=== PATIENT | female | born 1980 | race African-American/Black ===

== ENCOUNTER 2016-04-20 11:34 | Emergency (ER) | payer OTHER ==
[2016-04-20 11:42] VITALS: BP 120/68; PULSE 84; TEMP 98.6; BMI 30.9
[2016-04-20] MEDS ORDERED: ACETAMINOPHEN 325 MG TABLET (FP) PO ONE (12:20)
[2016-04-20] MEDS ORDERED: ACETAMINOPHEN 325 MG TABLET (FP) ONE (12:20)
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
== END 2016-04-20 13:53 | disposition home or self-care (01) ==
LOC: JERFT 11:34
DX: O99.89 Other specified diseases and conditions complicating pregnancy, childbirth and the puerperium (principal); M54.5 Low back pain; M25.511 Pain in right shoulder; Z3A.18 18 weeks gestation of pregnancy; V43.52XA Car driver injured in collision with other type car in traffic accident, initial encounter; Y92.414 Local residential or business street as the place of occurrence of the external cause; Y93.89 Activity, other specified; Y99.8 Other external cause status
CPT/HCPCS: 76815-TC; 99281-25

== ENCOUNTER 2016-09-13 08:25 | Inpatient (IN) | payer OTHER ==
[~2016-09-13 08:25] MED LIST: CITRIC ACID/SODIUM CITRATE 30 ML UNIT-DOSE CUP PO ONE
[2016-09-13] MEDS ORDERED: ELECTROLYTE-148 SOLN 500 ML IV ONE (08:55)
[2016-09-13] MEDS ORDERED: TUBERCULIN PPD 5 TU/0.1ML SYRINGE (IN PATIENT USE ONLY) ID ONE (09:30)
[2016-09-13] MEDS ORDERED: ELECTROLYTE-148 SOLN 1,000 ML IV SCH (09:55)
--- NOTE | 2016-09-13 10:02 | HP ---
Past Medical History - Admission History of Present Illness: 36 yo @ 39 03/25 wks EDC 09/19/2016 presenting for repeat delivery + bilateral tubal ligation complicated by: 1. AMA - negative sequential screen 2. BMI > 30 - normal glucose screen 3. Prior CD x 3 - desires repeat + BTL 4. Declined SMA/CF/Fragile X screening 5. Prior exploratory laparotomy for ectopic 6. Prior SAB x 4 - thrombophilia screen negative 06/2011 Patient presents for routine scheduled CD + BTL. She reports movement, denies leakage of fluid, vaginal bleeding or contractions History Source: Patient - Past Medical History Cardiovascular: No: HTN Pulmonary: No: Asthma ...: 8 ...Para: 3 ...Term: 3 ...: 0 ...Spon : 4 ...Induced : 0 ...Multiple Gestation: 0 ...LMP: 12/19/15 ... Weeks Gestation by Dates: 38.3 ...EDC by Dates: 09/24/16 ...EDC by Sono: 09/19/16 Heme/Onc: Yes: Anemia - Past Surgical History Past Surgical History: Yes: Hx Myomectomy: No Hx Transabdominal Cerclage: No Additional Surgical History: CD x 3. laparotomy for ectopic - Smoking History Smoking history: Never smoked Have you smoked in the past 12 months: No Aproximately how many cigarettes per day: 0 - Alcohol/Substance Use Hx Alcohol Use: No - Social History History of Recent Travel: No Home Medications - Allergies Allergies/Adverse Reactions: Allergies Allergy/AdvReac Type Severity Reaction Status Date / Time No Known Allergies Allergy Verified 04/20/16 11:40 - Home Medications Home Medications: Ambulatory Orders Vitamins (Sjr) - 1 tab PO DAILY 05/09/13 Oxycodone HCl/Acetaminophen [Percocet 5-325 mg Tablet -] 1 - 2 tab PO Q6H #20 tab 01/31/15 Butalb/Acetaminophen/Caffeine [Fioricet 50-300-40 mg Capsule] 1 each PO Q4H PRN #16 capsule 02/01/15 Family Disease History - Family Disease History Family History: Denies Review of Systems - Review of Systems Constitutional: reports: No Symptoms Neck: reports: No Symptoms Cardiovascular: reports: No Symptoms Respiratory: reports: No Symptoms Gastrointestinal: reports: No Symptoms Genitourinary: reports: No Symptoms Musculoskeletal: reports: No Symptoms Integumentary: reports: No Symptoms Endocrine: reports: No Symptoms Hematology/Lymphatic: reports: No Symptoms Physical Exam - Maternity Vital Signs: Vital Signs Temperature 98.4 F 09/13/16 08:45 Pulse Rate 91 H 09/13/16 08:45 Respiratory Rate 20 09/13/16 08:45 Blood Pressure 125/76 09/13/16 08:45 O2 Sat by Pulse Oximetry (%) Constitutional: Yes: Well Nourished, No Distress, Calm Neck: Yes: Supple Cardiovascular: Yes: Regular Rate and Rhythm Lungs: Clear to auscultation - Abdominal Exam/OB Fundal Height: 40 Number of Fetuses: Single Contractions: No Category: I - Vaginal Exam/OB Vaginal Bleediing: No - Physical Exam Psychiatric: Yes: Alert, Oriented - Labs Lab Results: PNL - A positive, antibody negative; RPR NR; HBsAg negative, Rubella Immune; HIV negative; GBS negative; GTT 114 Hemorrhage Risk Assessment - Risk Factors Medium Risk Factors: Yes: Prior , uterine surgery,or multiple laparotomies High Risk Factors: Yes: None Risk Score: 1 Risk Level: Medium Risk Assessment/Plan 36 yo for repeat delivery and tubal ligation 1. Consents reviewed and signed. Reviewed risks of procedure including infection , bleeding, damage to surrounding organs such as bowel and bladder, risk of injury to . 2. Reviewed preop labs 3. 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 SCDs for DVT PPX 5. Will proceed to OR
[2016-09-13] MEDS ORDERED: BENZOCAINE 20% 57 GM BOTTLE TP PRN (11:55)
[2016-09-13] MEDS ORDERED: METHYLERGONOVINE MALEATE 0.2 MG/1 ML AMP IM PRN (11:55)
[2016-09-13] MEDS ORDERED: oxyCODONE HCL 5 MG TABLET PO PRN ×2 (11:55)
[2016-09-13] MEDS ORDERED: WITCH HAZEL 50% (TUCKS) 40 PAD/JAR PAD TP PRN (11:55)
[2016-09-13] MEDS ORDERED: D5W-LR W/ 20 UNITS OXYTOCIN 1,000 ML IV SCH (12:00)
--- NOTE | 2016-09-13 12:08 | PN ---
Delivery - Delivery Section: Repeat Type of Anesthesia: Spinal EBL (cc): 600 Delivery, Single - Stages of Labor Placenta: Yes: Expressed - Condition of Infant Gender: Male Position: Right, OT - 1 Minute Total Score: 9 5 Minutes Total Score: 9 - Merlin Feeding Plan Initial Plan: Elected not to breastfeed exclusively throughout hospitalization Remarks - Remarks Remarks: Surgeon: Carlos Alberto Assist: Fermin Anesthesia: [id number] EBL: 600 UOP: 400 IVF:1200 Findings: male infant, ROT position, weight 6-13, length 18.5 inches; normal tubes and ovaries bilaterally Pathology: Placenta, portion of left and right fallopian tubes Dictation:
[2016-09-13] MEDS ORDERED: ONDANSETRON 4 MG/2 ML VIAL IVPB PRN (12:28)
--- NOTE | 2016-09-13 13:03 | OP ---
DATE OF OPERATION: 09/13/2016 ATTENDING PHYSICIAN: Mariza Carcamo MD PREOPERATIVE DIAGNOSIS: Intrauterine of 39+ weeks, previous section desiring repeat, and desiring permanent sterilization. POSTOPERATIVE DIAGNOSIS: Intrauterine of 39+ weeks, previous section desiring repeat, and desiring permanent sterilization. SURGERY: Repeat delivery and bilateral tubal ligation. SURGEON: Mariza Carcamo MD [employer]NAGEMENT ADVISER: Oscar Christensen MD ANESTHESIA: Bonilla Kaplan MD ESTIMATED BLOOD LOSS: 600 mL. URINE OUTPUT: 400 mL. FLUIDS: Intravenous fluids given of 1200 mL. FINDINGS: Weight of the is 6 pounds 13 ounces; length of 18-1/2-inches. PATHOLOGY: Placenta, portion of left and right fallopian tubes. INDICATIONS: The patient is a 36-year-old 9, para 3-0-5-3, at 39 weeks with prior x3. She is desiring repeat and desiring permanent sterilization. She was counseled regarding the risks, benefits, alternatives, and complications of the procedure including infection, bleeding, damage to underlying organs such as bowel, bladder, and uterus, injury to the infant, risk of tubal ligation failure, risk of regret. She expressed understanding and was brought to the operating room. When anesthesia was found to be adequate, the patient was prepped and draped in the normal sterile fashion. She was placed in the dorsal supine position with a leftward tilt. An approximately 11-cm skin incision was made with the knife and carried down to the underlying rectus muscles using the Bovie electrocautery. The fascia was nicked in the midline and extended laterally using electrocautery. The inferior portion of the fascial incision was tented up using Sarah clamps and dissected off the underlying rectus muscles using the Miranda scissors. Attention was brought to the superior portion where in similar fashion was tented up using Sarah clamps and dissected off the underlying rectus muscle using the Miranda scissors. The rectus muscles were in the midline. The peritoneum was entered sharply and extended superiorly and inferiorly. The vesicouterine peritoneum was entered sharply and bladder flap was created bluntly. Hysterotomy was performed, extended laterally using the bandage scissors. Amniotomy was performed. Clear fluid was noted. The infant's head was brought to the hysterotomy site and was delivered followed by shoulders and body without difficulty. The cord was clamped and cut. Cord blood was collected and sent. The infant was handed to the awaiting NICU staff present for delivery. The placenta was delivered. The uterus was cleared of all clots and debris. The uterus was closed using 0 Biosyn in a running layer and the second layer as embrocating layer. Attention was brought to the left fallopian tube. It was followed to the fimbriated end. A 2-cm portion of the fallopian tube was isolated and suture ligated using 0 chromic gut. Electrocautery was applied to the fallopian tube ends and good hemostasis was noted. Attention was brought to the right fallopian tube. It was followed to the fimbriated end. A 2-cm portion was isolated and suture ligated using 0 chromic gut. Bovie electrocautery was applied to the fallopian tube ends and good hemostasis was noted. The hysterotomy was examined and found to be hemostatic. The vesicouterine peritoneum was closed using 2-0 Biosyn in a running fashion. The muscles were reapproximated using 0 Biosyn in interrupted fashion. The fascia was closed using 0 Vicryl in a running fashion. The subcutaneous fat was reapproximated using 0 Biosyn in a running fashion. The skin was reapproximated using 3-0 Vicryl. The patient tolerated the procedure well. Estimated blood loss was 600 mL. The patient was brought to the recovery room in stable condition. Tejal [id number]
[2016-09-13] MEDS: IBUPROFEN 800 MG/8 ML IJ IVPB PRN ×2 (14:11→23:24)
[2016-09-14 08:19] LABS: BASOPHIL 0.6 % (0-2.0); EOSINOPHIL 0.3 % (0-4.5); MCH 26.6 pg (25.7-33.7); MEAN CELL VOLUME 80.7 fl (80-96); MEAN PLT VOLUME 7.9 fl (7.5-11.1); NEUTROPHILS 79.9 % (42.8-82.8); PLATELET COUNT 164 K/MM3 (134-434); RDW 15.3 % (11.6-15.6)
--- NOTE | 2016-09-14 08:56 | PN ---
Post Progress Note - Subjective Subjective: Patient without acute complaints. Reports tolerating oral intake without nausea or vomiting. Ambulating without dizziness. Denies fevers or chills. Pain well controlled with oral pain medication. without difficulty. Passing flatus. Post Day: 1 Type of Delivery: Repeat C/S Vital Signs: Vital Signs Temperature 98.5 F 09/14/16 06:00 Pulse Rate 77 09/14/16 06:00 Respiratory Rate 20 09/14/16 06:00 Blood Pressure 110/64 09/14/16 06:00 O2 Sat by Pulse Oximetry (%) 99 09/13/16 13:20 Breast Exam: Yes: Soft, Engorged Uterus: Yes: Fundus Firm, Fundus @ umbilicus Incision: Yes: Dressing dry and intact Abdomen/GI: Yes: Abdomen soft, Tender (incisional). No: Abdominal Distention Lochia: Yes: Serosa Lochia, amount: Small Extremities: Yes: Calves non-tender, Edema (trace) - Labs Labs: CBC WBC 9.0 K/mm3 (4.0-10.0) 09/14/16 07:15 RBC 4.07 M/mm3 (3.60-5.2) 09/14/16 07:15 Hgb 10.9 GM/dL (10.7-15.3) 09/14/16 07:15 Hct 32.9 % (32.4-45.2) 09/14/16 07:15 MCV 80.7 fl (80-96) 09/14/16 07:15 MCHC 33.0 g/dl (32.0-36.0) 09/14/16 07:15 RDW 15.3 % (11.6-15.6) 09/14/16 07:15 Plt Count 164 K/MM3 (134-434) 09/14/16 07:15 MPV 7.9 fl (7.5-11.1) 09/14/16 07:15 Neutrophils % 79.9 % (42.8-82.8) 09/14/16 07:15 Lymphocytes % 11.2 % (8-40) D 09/14/16 07:15 Monocytes % 8.0 % (3.8-10.2) 09/14/16 07:15 Eosinophils % 0.3 % (0-4.5) 09/14/16 07:15 Basophils % 0.6 % (0-2.0) 09/14/16 07:15 Assessment/Plan 36 yo POD #4 s/p repeat CD + BTL, afebrile, vital signs stable, doing well 1. Continue routine postoperative care. 2. Follow up AM CBC 3. Rh positive status, no rhogam indicated. 4. Encourage ambulation and incentive spirometer use 5. Continue oral pain medication 6. Anticipate discharge home postoperative day #3 or #4
[2016-09-14] MEDS: PRENATAL VITAMINS W/ FOLIC ACID TABLET (FP) PO SCH (10:06)
[2016-09-14] MEDS: ENOXAPARIN NA (PORCINE) 40 MG/0.4 ML DISP.SYRIN SQ SCH (10:06)
[2016-09-14] MEDS: IBUPROFEN 600 MG TABLET (FP) PO PRN ×3 (10:07→22:02)
[2016-09-14] MEDS: ACETAMINOPHEN 325 MG TABLET (FP) PO PRN ×3 (10:08→22:01)
[2016-09-14] MEDS ORDERED: BISACODYL 10 MG SUPP.RECT RC PRN (11:56)
--- NOTE | 2016-09-14 13:48 | PN ---
Progress Note (short form) - Note Progress Note: Anesthesiology POD #1 s/p C/S under spinal anesthesia. Pt. feels well, denies h/a or problems walking. Pain under control. VSS.
[2016-09-14] MEDS ORDERED: DIPHTH,PERTUSS(ACELL),TET 0.5 ML DISP.SYRIN IM ONE (14:00)
[2016-09-14] MEDS: SIMETHICONE 80 MG TAB.CHEW (FP) PO PRN ×2 (14:59→22:02)
[2016-09-14] MEDS: SENNOSIDES/DOCUSATE COMBO (SENNA PLUS) TABLET (UD) PO PRN (22:02)
[2016-09-15] MEDS: IBUPROFEN 600 MG TABLET (FP) PO PRN ×3 (06:16→19:58)
[2016-09-15] MEDS: ACETAMINOPHEN 325 MG TABLET (FP) PO PRN ×3 (06:16→19:57)
[2016-09-15] MEDS: SIMETHICONE 80 MG TAB.CHEW (FP) PO PRN ×3 (06:16→19:57)
--- NOTE | 2016-09-15 08:11 | PN ---
Progress Note (short form) - Note Progress Note: pod 2 s/p c/s , btl doing well, ambulating CBC, BMP 09/14/16 07:15 Last Vital Signs Temp Pulse Resp BP Pulse Ox 98.4 F 90 20 118/76 99 09/14/16 21:37 09/14/16 21:37 09/14/16 21:37 09/14/16 21:37 09/13/16 13:20 abdomen soft, no distension, no cva incision dry, clean no calf tendernes no excess vaginal bleeding plan ambulate, cbc in am
--- NOTE | 2016-09-15 08:58 | PN ---
Progress Note (short form) - Note Progress Note: Patient states desires circumcision for . Discussed risks including infection, bleeding, damage to tip of penis, and unsatisfactory result, resulting in surgical repair or repeat circumcision. Patient expressed understanding and consents to procedure. Reviewed infants chart, cleared for circumcision by thermometer maker, Dr. Brewer
[2016-09-15] MEDS: PRENATAL VITAMINS W/ FOLIC ACID TABLET (FP) PO SCH (09:39)
[2016-09-15] MEDS: ENOXAPARIN NA (PORCINE) 40 MG/0.4 ML DISP.SYRIN SQ SCH (09:39)
[2016-09-15] MEDS: SENNOSIDES/DOCUSATE COMBO (SENNA PLUS) TABLET (UD) PO PRN (19:57)
[2016-09-16] MEDS: SIMETHICONE 80 MG TAB.CHEW (FP) PO PRN ×3 (00:15→12:38)
[2016-09-16] MEDS: IBUPROFEN 600 MG TABLET (FP) PO PRN ×3 (00:15→12:37)
[2016-09-16] MEDS: ACETAMINOPHEN 325 MG TABLET (FP) PO PRN ×3 (00:16→12:37)
[2016-09-16 08:01] LABS: EOSINOPHIL 1.9 % (0-4.5); MCH 26.3 pg (25.7-33.7); MCHC 32.5 g/dl (32.0-36.0); MEAN CELL VOLUME 80.9 fl (80-96); MEAN PLT VOLUME 7.9 fl (7.5-11.1); NEUTROPHILS 65.7 % (42.8-82.8); PLATELET COUNT 204 K/MM3 (134-434); RDW 15.2 % (11.6-15.6); WHITE BLOOD COUNT 9.3 K/mm3 (4.0-10.0)
[2016-09-16] MEDS: PRENATAL VITAMINS W/ FOLIC ACID TABLET (FP) PO SCH (09:46)
[2016-09-16] MEDS: ENOXAPARIN NA (PORCINE) 40 MG/0.4 ML DISP.SYRIN SQ SCH (09:46)
[2016-09-16 10:56] VITALS: BP 127/68; PULSE 78; TEMP 99.2
--- NOTE | 2016-09-18 10:57 | PATH ---
Surgical Pathology Report Patient Name: LINDA NICOLE [facility]. Rec. #: [id number] /Age/Gender: 1980 (Age: 36) / F Account: [id number] Location: [facility] OBS/MUSTANGER Taken: 09/13/2016 Received: 09/14/2016 Reported: 09/18/2016 Physicians: Mariza Carcamo Specimen(s) Received A: PLACENTA B: LEFT FALLOPIAN TUBE C: RIGHT FALLOPIAN TUBE Clinical History 39 1/7 weeks' gestation, Scheduled repeat c/section Final Diagnosis A. PLACENTA, DELIVERY: INTACT, SMALL (<400 GM), THIRD TRIMESTER PLACENTA WITH MODERATE INCREASE IN PREVILLOUS AND PRECHORIONIC FIBRIN DEPOSITION, THREE VESSEL UMBILICAL CORD, AND PLACENTAL MEMBRANES FOCAL AMNION HYPERPLASIA. B. PORTION OF FALLOPIAN TUBE, LEFT, LIGATION: SEGMENT OF FALLOPIAN TUBE WITH COMPLETE CROSS SECTION. C. PORTION OF FALLOPIAN TUBE, RIGHT, LIGATION: SEGMENT OF FALLOPIAN TUBE WITH COMPLETE CROSS SECTION. Electronically Signed Alejandro Smith M.D. Gross Description A. The specimen is received fresh, labeled "placenta" and is a 320 gram, 14.0 x 12.5 x 2.4 cm placenta with attached membranes and umbilical cord. The attached membranes are wheeler, translucent with focal opacities and insert marginally. The umbilical cord measures 33 cm in length and averages 1.3 cm in diameter. The cord inserts eccentrically, 2.5 cm to the nearest margin. No true knots or strictures are identified. Cut surface of the umbilical cord reveals 3 vessels. The surface is cuevas-blue with fibrin deposition and appropriate caliber vessels. The maternal surface is red-brown and intact. Sectioning reveals red-brown, spongy parenchyma. No focal lesions are identified. Reporting Analyst sections are submitted in three cassettes as follows: 1- membrane rolls and umbilical cord; 2-3- full thickness sections of placenta. B. Received in formalin labeled "portion of left fallopian tube" is a 0.7 cm in length portion of fallopian tube. No fimbria are present. The outer surface is wheeler-cross and smooth. Sectioning reveals a pinpoint lumen. Reporting Analyst sections are submitted in one cassette. C. Received in formalin labeled "portion of right fallopian tube" is a 1.1 cm in length portion of fallopian tube. No fimbria are present. The outer surface is wheeler-cross and smooth. Sectioning reveals a pinpoint lumen. Reporting Analyst sections are submitted in one cassette. 09/15/2016 [facility]09/15/2016
== END 2016-09-16 13:47 | disposition home or self-care (01) | DRG 766 ==
LOC: JLDR 08:25 → J3W 13:54
PROVIDERS: ADMIT Obstetrics & Gynecology; ATTEND Obstetrics & Gynecology
PROC: 10D00Z1 Extraction of Products of Conception, Low, Open Approach (ICD-10-PCS; principal; 2016-09-13)
PROC: 0UL70ZZ Occlusion of Bilateral Fallopian Tubes, Open Approach (ICD-10-PCS; 2016-09-13)
DX: O34.211 Maternal care for low transverse scar from previous cesarean delivery (principal); Z30.2 Encounter for sterilization; Z3A.39 39 weeks gestation of pregnancy; Z37.0 Single live birth
CPT/HCPCS: 36415; 85025; 88302-TC; 88307-TC; 90715; 94010

== ENCOUNTER 2021-07-08 05:36 | Day surgery (SDC) | payer OTHER ==
[2021-07-07 10:26] VITALS: BMI 30.9
[2021-07-08] MEDS ORDERED: BUPIVACAINE HCL/PF 0.5% (5MG/ML) 10 ML VIAL ONE (07:45)
[2021-07-08] MEDS ORDERED: LIDOCAINE HCL 1% EPINEPHRINE 1:200,000 30 ML VIAL (PF) ONE (07:45)
[2021-07-08] MEDS ORDERED: DEXAMETHASONE SOD PHOSPHATE 4 MG/1 ML VIAL ONE ×2 (07:46→07:51)
[2021-07-08] MEDS ORDERED: LIDOCAINE HCL 1%, 10 MG/ML (20ML VIAL) ONE (07:51)
[2021-07-08] MEDS ORDERED: LIDOCAINE HCL 1%, 10 MG/ML (20ML VIAL) INF ONE ×2 (08:44→09:10)
[2021-07-08] MEDS ORDERED: BUPIVACAINE HCL/PF 0.5% (5MG/ML) 10 ML VIAL IJ ONE ×3 (08:46→09:46)
[2021-07-08] MEDS ORDERED: GENTAMICIN SO4 80 MG/2 ML VIAL ONE (08:53)
[2021-07-08] MEDS ORDERED: PROPOFOL 20 ML ONE (08:54)
[2021-07-08] MEDS ORDERED: MIDAZOLAM HCL 2 MG/2 ML SINGLE DOSE VIAL ONE (08:54)
[2021-07-08] MEDS ORDERED: SODIUM CHLORIDE 0.9% P/F 10 ML VIAL IJ ONE (08:56)
[2021-07-08] MEDS ORDERED: LIDOCAINE HCL/PF 2% SDV 5ML VIAL ONE (08:56)
[2021-07-08] MEDS ORDERED: ceFAZolin SODIUM 1 GM VIAL ONE (08:56)
[2021-07-08] MEDS ORDERED: ceFAZolin SODIUM 1 GM VIAL IVPB ONE (09:09)
[2021-07-08] MEDS ORDERED: GENTAMICIN SO4 80 MG/2 ML VIAL IVPB ONE (09:12)
[2021-07-08] MEDS ORDERED: KETOROLAC TROMETHAMINE 30 MG/1 ML VIAL ONE (09:21)
[2021-07-08] MEDS ORDERED: DEXAMETHASONE SOD PHOSPHATE 4 MG/1 ML VIAL IVPUSH ONE (09:46)
[2021-07-08 11:34] VITALS: TEMP 98.9
[2021-07-08 13:04] VITALS: BP 125/70; PULSE 60
== END 2021-07-08 14:15 | disposition home or self-care (01) ==
LOC: JASU-SURG 05:36
PROVIDERS: ATTEND Podiatrist Foot Surgery
PROC: 0QBQ0ZZ Excision of Right Toe Phalanx, Open Approach (ICD-10-PCS; 2021-07-08)
PROC: 0SRP0JZ Replacement of Right Toe Phalangeal Joint with Synthetic Substitute, Open Approach (ICD-10-PCS; principal; 2021-07-08 09:30)
DX: M20.41 Other hammer toe(s) (acquired), right foot (principal)
CPT/HCPCS: 73630-TC-RT-FY; 81025; 88304-TC; 88311-TC